=== PATIENT | female | born 1940 | race Caucasian/White ===

== ENCOUNTER 2025-04-15 07:12 | Day surgery (SDC) | payer MEDICARE, OTHER ==
[~2025-04-15] VITALS: Ht 154.9 cm; Wt 172.0 kg
[~2025-04-15 07:12] MED LIST: CALC-437 PO; CARB-90 PO; CHOL400T8 PO; EZET10TA6 PO; GABA-530 PO; GLUC1TAB9 PO; HYDR25TA4 PO; MULT-1085 PO; OMEP20CA15 PO
[2025-04-15 07:41] VITALS: BP 146/67; PULSE 80; RESP 14
[2025-04-15] MEDS ORDERED: fentaNYL/PF 50MCG/1 ML 2ML syringe ONE (08:20)
[2025-04-15] MEDS ORDERED: midazolam 1 mg/ML 2ml injection ONE (08:20)
[2025-04-15] MEDS ORDERED: propofol inj 20 ML IV ONE (08:41)
[2025-04-15] MEDS ORDERED: LIDOcaine 2% (20mg/ml) 5ml vial ONE (08:41)
[2025-04-15 09:12] VITALS: BP 152/78; PULSE 87; RESP 12; O2SAT 99
[2025-04-15 09:20] VITALS: BP 145/80; PULSE 86; RESP 11; O2SAT 97
[2025-04-15 09:30] VITALS: BP 154/80; PULSE 80; RESP 13; O2SAT 98
[2025-04-15 09:39] VITALS: BP 152/82; PULSE 83; RESP 12; O2SAT 97
[2025-04-15 09:47] VITALS: BP 132/73; PULSE 88; RESP 13; O2SAT 96
== END 2025-04-15 09:48 | disposition home or self-care (01) ==
LOC: GI LAB 07:12
PROVIDERS: ATTEND Internal Medicine Gastroenterology
DX: Z09 Encounter for follow-up examination after completed treatment for conditions other than malignant neoplasm (principal); K57.30 Diverticulosis of large intestine without perforation or abscess without bleeding; I10 Essential (primary) hypertension; Z86.0101 Personal history of adenomatous and serrated colon polyps; K21.9 Gastro-esophageal reflux disease without esophagitis; Z87.442 Personal history of urinary calculi; Z90.11 Acquired absence of right breast and nipple; Z88.8 Allergy status to other drugs, medicaments and biological substances
CPT/HCPCS: 45378; A4620; J2003; J2250; J2704; J3010; J7030; Z7512

== ENCOUNTER 2025-10-07 09:17 | Outpatient (CLI) | payer MEDICARE, OTHER ==
--- NOTE | 2025-10-08 00:24 | CONSULTATION ---
DATE OF CONSULTATION: 10/07/2025 DICTATING PHYSICIAN: Maddie Sanchez M.S., CCC-CERTIFIED DIETARY MANAGER MODIFIED BARIUM SWALLOW STUDY REPORT REFERRING PHYSICIAN: TAVO Novoa HISTORY OF PRESENT ILLNESS: The patient is an 85-year-old female and consents to this evaluation. In history obtained from the patient and medical records, the patient reports symptoms of dysphagia including feeling as if food lodges at the level of her clavicle. She reports that this has been occurring for years and that it is random in the amount of times that it might occur per week or at what time of day that it could occur. She notices this especially with items such as meats and breads. She reports medical history of a thyroid nodule, breast cancer with mastectomy on the right side, arthritis in the spine, and restless legs. CURRENT DIET: In terms of caffeine, the patient has 2 cups of coffee on a daily basis. She does not utilize tobacco products or drink alcohol. She consumes chocolate once to twice weekly. In terms of dairy products, the patient has milk on a daily basis, cheese regularly, and ice cream every other day. The patient is in assisted living facility and so meals are prepared for her. Typical breakfast consists of shredded wheat with milk and banana. She does not snack in the morning. Her lunch is the larger meal of the day and may be something such as ravioli with salad or [place] steak, potatoes, and salad. She does not snack in the afternoon. A typical dinner is between 4:00 to 5:00 p.m. and is smaller and may be something such as taquitos. She also has a dessert with dinner and every other day that is ice cream. MEDICATIONS: Carbidopa/levodopa 50/200 one tablet twice daily orally, gabapentin 100 mg 1 tablet once daily orally, hydrochlorothiazide 25 mg 1 tablet once daily orally, ezetimibe 10 mg 1 tablet once daily orally, pantoprazole sodium DR 40 mg 1 tablet once daily orally, mometasone furoate SENIOR CARE 0.1% ointment. PARAMETERS: The patient is seated in a lateral 90-degree view and administered the usual protocol of thin and nectar thick liquids, puree and solid consistencies, as well as self-regulated boluses of thin liquids from a cup. RESULTS: The patient was easily able to transfer the bolus from the anterior to the posterior oral cavity. There did not appear to be any difficulty with strength or range of motion of the tongue in the oral stage of the swallow. In the pharyngeal stage of the swallow, tongue base retraction was mildly reduced. The swallow initiation was delayed to the level of the vallecula for 1 mL and 3 mL thin liquid boluses and was within functional limits for other bolus sizes and consistencies. Anterior movement of the posterior pharyngeal wall is observed. Elevation of the hyothyroid complex is accomplished with full range of motion for epiglottic inversion and anterior and superior movement of the hyoid. There is a mild pharyngeal residue residing above the level of the vallecula and PES opening is within functional limits. The patient demonstrated with penetration in 1/2 of the self-regulated, thin liquid boluses of a cup, this being less than 10% of the bolus. It was noted in the lateral plane that larger bolus sizes and thicker boluses would begin to stick below that level of the PES opening. It appeared that there was a narrowed esophageal opening below that PES opening. When the cookie was first administered, it was administered as a 1/4 of a Lisbet Doone cookie as per protocol. The second one was administered in a smaller size and that one filtered through the esophagus quicker than the first administration. ANTERIOR, POSTERIOR VIEW: In the AP plane, the bolus split symmetrically between the piriform sinuses and there was proximal movement of the bolus noted to the level of the mid sternum. IMPRESSION: The patient demonstrates with what appears to be a [id number] pharyngoesophageal stage swallowing disorder characterized by what appears to be a narrowed esophageal opening below the level of the PES opening and proximal movement of the boluses to the level of the mid sternum. DIAGNOSES: R13.14, dysphagia, pharyngoesophageal phase; K21.9, gastroesophageal reflux disease. PATIENT EDUCATION: Immediately following modified barium swallow study, the patient was able to view the results. The patient was able to see how the current status of the swallowing mechanism decreases her ability to swallow normally. She was educated on strategies for what appeared to be that narrow esophageal opening, including taking smaller bites of her foods, adding extra moisture and gravy to food items, and alternating liquids and solids. She was also educated on dietary modifications for laryngopharyngeal reflux disease. Should some of these diet modifications and swallowing strategies not reduce the symptoms that the patient is feeling of food sticking at the level of her clavicle, the patient may be recommended for an upper GI. RECOMMENDATIONS: 1. It is recommended that the patient follow the aforementioned laryngopharyngeal reflux disease precautions in the form of dietary modifications as well as the swallowing strategies, including small bites, extra moisture and gravy, and alternating foods and liquids. 2. Should some of these diet modifications and swallowing strategies not reduce the symptoms that the patient is feeling of food sticking at the level of her clavicle, the patient may be recommended for an upper GI. LONG-TERM GOALS: The patient will maintain adequate hydration/nutrition with optimum safety and efficiency of swallow function on p.o. intake without overt signs and symptoms of aspiration for the highest possible diet level. FUNCTIONAL ORAL INTAKE: The FOIS was administered to establish and document a change in the functional eating activities of this patient over time. This is a 7-point scale with 1 indicating no oral intake and totally tube dependent and 7 indicating total oral intake with no restrictions. This patient received a 6, which indicates she has a total oral diet with multiple consistencies without special preparation, but with specific food limitations and precautions. G-CODE: [id number]. Thank you very much for asking me to participate in the care of this kind patient. Should you have any questions regarding this evaluation or recommendations, please do not hesitate to contact me at [phone]. During this examination, 2:38 minutes of fluoroscopy time and 18.43 CAK mGy were utilized. Maddie Sanchez M.S., [place]-CERTIFIED DIETARY MANAGER TID: [id number] RECEIPT: [id number] ANJELICA CALDERON
== END 2025-10-07 23:59 | disposition home or self-care (01) ==
LOC: RAD 09:17
PROVIDERS: ATTEND Registered Nurse
DX: R13.10 Dysphagia, unspecified (principal); R05.9 Cough, unspecified
CPT/HCPCS: 74230